=== PATIENT | female | born 1985 | race Hispanic/Latino ===

== ENCOUNTER → 2020-02-27 | Outpatient (CLI) | payer BC | LOC: GMAJ 13:12 | PROVIDERS: ATTEND Family Medicine | DX: E05.80 Other thyrotoxicosis without thyrotoxic crisis or storm (principal) ==

== ENCOUNTER → 2020-07-20 | Outpatient (CLI) | payer BC ==
--- NOTE | 2020-07-21 16:42 | US ---
US THYROID CLINICAL STATEMENT:35 years Female HYPERTHYROIDISM. COMPARISON: None TECHNIQUE: Transcutaneous scanning, grayscale and Doppler modes. FINDINGS: Size right thyroid lobe: 4.3 x 1.7 x 1.7 cm Size left thyroid lobe: 4.5 x 1.5 x 1.3 cm Size isthmus: 0.32 cm Estimated total number of nodules greater than or equal to 1 cm: None.. No distinct cysts, no fluid collection, no large calcifications. Senior [employer] reports no overlying skin changes. Nodule 1: Size: 0.5 x 0.5 x 0.5 cm Location: Right Mid Composition: solid or almost completely solid: 2 points . Not vascular. Echogenicity: hypoechoic: 2 points Shape: wider than tall: 0 points Margins: smooth: 0 points Echogenic foci: none: 0 points. ACR Total Points: 4; ACR TI-RADS risk category: TR4 - moderately suspicious nodule. Soft tissue around the thyroid gland is unremarkable. IMPRESSION: 1. Nodule 1: ACR TI-RADS 2017 Category TR4. Recommend: No further follow-up.. Recommendations based upon [employer] recommendations and ACR TI-RADS 2017 guidelines. Please see below*. 2. No abnormalities seen in the surrounding soft tissues. *ACR TI-RADS 2017 Recommendations for imaging follow-up of nodules (baseline study): TR1: No FNA or follow up TR2: No FNA or follow up TR3: FNA if >/= 2.5 cm, follow up if 1.5 - 2.4 cm in 1, 3, and 5 years TR4: FNA if >/= 1.5 cm, follow up if 1.0 - 1.4 cm in 1, 2, 3, and 5 years TR5: FNA if >/= 1.0 cm, follow up if 0.5 - 0.9 cm every year for 5 years ACR TI-RADS recommends that no more than two nodules with the highest ACR TI-RADS total point should be biopsied and no more than four nodules should be followed. These recommendations do not apply to patients with increased risk for thyroid cancer or patients with symptomatic thyroid disease. Electronically signed by: Mir Diamond MD 07/21/2020 4:40 PM [facility]
== END ==
LOC: US 08:20
PROVIDERS: ATTEND Family Medicine
DX: E05.90 Thyrotoxicosis, unspecified without thyrotoxic crisis or storm (principal); Z79.899 Other long term (current) drug therapy; Z83.49 Family history of other endocrine, nutritional and metabolic diseases; E04.9 Nontoxic goiter, unspecified